=== PATIENT | female | born 1970 | race Caucasian/White ===

== ENCOUNTER 2024-01-01 08:39 | Emergency (ER) | payer MEDICARE ==
[2024-01-01 09:24] LABS: BASOPHILS % (AUTO) 0.3 %; EOSINOPHILS # (AUTO) 0.1 10^3/uL (0.0-0.7); HCT - HEMATOCRIT 40.5 % (37.0-47.0); HGB - HEMOGLOBIN 12.7 g/dL (12.0-16.0); LYMPHOCYTES # (AUTO) 1.3 10^3/uL (1.5-3.5); LYMPHOCYTES % (AUTO) 9.6 %; MEAN CORPUSCULAR HGB CONC 31.4 g/dL (32.0-36.0); MEAN CORPUSCULAR VOLUME 95.7 fL (81.0-99.0); MEAN PLATELET VOLUME 10.1 fL (7.9-10.8); MONOCYTES % (AUTO) 7.2 %; NEUTROPHILS # (AUTO) 11.1 10^3/uL (1.5-6.6); NEUTROPHILS % (AUTO) 81.6 %; PLT - PLATELET COUNT 243 10^3/uL (130-450); RED BLOOD COUNT 4.23 10^6/uL (4.20-5.40); WHITE BLOOD COUNT 13.6 x10^3/uL (4.8-10.8)
[2024-01-01 09:37] LABS: ALBUMIN/GLOBULIN RATIO 1.7 (1.0-2.2); BILIRUBIN,TOTAL 1.1 mg/dL (0.2-1.0); CALCIUM 9.3 mg/dL (8.5-10.3); CREATININE 1.1 mg/dL (0.6-1.3); TOTAL PROTEIN 6.4 g/dL (6.4-8.9)
[2024-01-01 10:58] VITALS: O2SAT 98
--- NOTE | 2024-01-01 11:40 | ED Physician Documentation ---
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 She has a history of hemorrhoids and rectal fissure. She presents with 2 days of left-sided rectal pain associated with a low-grade fever. There is no bleeding. 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 - Present Medications Home Medications: Ambulatory Orders Medication Instructions Recorded Confirmed Amox/Clav 875/125 [Augmentin] 1 each PO Q12H #20 tablet 01/01/24 Atorvastatin [Lipitor] 20 mg PO QPM 01/01/24 01/01/24 Buspirone HCl 15 mg PO TID PRN 01/01/24 01/01/24 DULoxetine [Cymbalta] 60 mg PO DAILY 01/01/24 01/01/24 EPINEPHrine [Epinephrine] 0.3 mg IM ONCE PRN 01/01/24 01/01/24 Famotidine 40 mg PO HS 01/01/24 01/01/24 Gabapentin [Neurontin] 300 mg PO DAILY 01/01/24 01/01/24 Hydrocodone/Acetaminophen 2 each PO BID PRN 01/01/24 01/01/24 [Hydrocodone-Acetamin 10-325 mg] Hydroxychloroquine [Plaquenil] 200 mg PO BID 01/01/24 01/01/24 Levothyroxine Sodium 50 mcg PO DAILY 01/01/24 01/01/24 Midodrine [ProAmantine] 10 mg PO TIDWM PRN 01/01/24 01/01/24 Pramoxine HCl [Proctofoam] 1 appful OR QID PRN #30 gm 01/01/24 Rimegepant Sulfate [Nurtec Odt] 1 tab PO DAILY PRN 01/01/24 01/01/24 Rivaroxaban [Xarelto] 20 mg PO DAILY 01/01/24 01/01/24 Semaglutide [Ozempic] 1 mg SQ .WEEKLY 01/01/24 01/01/24 Thyroid [[place] Thyroid] 60 mg PO DAILY 01/01/24 01/01/24 dexAMETHasone [Decadron] 4 mg PO DAILY PRN 01/01/24 01/01/24 tiZANidine [Zanaflex] 8 mg PO BID PRN 01/01/24 01/01/24 - Allergies Allergies/Adverse Reactions: Allergies Allergy/AdvReac Type Severity Reaction Status Date / Time celecoxib [From Celebrex] Allergy Rash Verified 01/01/24 08:58 heparin Allergy Rash Verified 01/01/24 10:00 Sulfa (Sulfonamide Allergy Rash Verified 01/01/24 08:58 Antibiotics) - Social History Does the pt smoke?: No Smoking Status: Never smoker Does the pt drink ETOH?: No Does the pt have substance abuse?: No PD ED PE NORMAL - Vitals Vital signs reviewed: Yes - General General: Alert and oriented X 3, No acute distress - Abdomen Abdomen: Non tender - Rectal Rectal: Other (Exam done with IU to RN present and chaperoning. There is a small area of fullness to the left of the rectum consistent with a small perianal abscess.) Results - Vitals Vitals: Vital Signs - 24 hr 01/01/24 01/01/24 08:49 10:56 Temperature 36.8 C Heart Rate 93 83 Respiratory 15 14 Rate Blood Pressure 90/58 L 102/72 O2 Saturation 96 98 Oxygen O2 Source Room air - Labs Labs: Laboratory Tests 01/01/24 01/01/24 09:19 09:19 WBC 13.6 H RBC 4.23 Hgb 12.7 Hct 40.5 MCV 95.7 MCH 30.0 MCHC 31.4 L RDW 13.0 Plt Count 243 MPV 10.1 Neut # (Auto) 11.1 H Lymph # (Auto) 1.3 L [place] # (Auto) 1.0 Eos # (Auto) 0.1 Baso # (Auto) 0.0 Absolute Nucleated RBC 0.00 Nucleated RBC % 0.0 Sodium 137 Potassium 4.0 Chloride 103 Carbon Dioxide 29 Anion Gap 5.0 L BUN 12 Creatinine 1.1 Estimated GFR (MDRD) 52 L Glucose 93 Calcium 9.3 Total Bilirubin 1.1 H AST 9 L ALT 8 L Alkaline Phosphatase 50 Total Protein 6.4 Albumin 4.0 Globulin 2.4 Albumin/Globulin Ratio 1.7 Lipase 14 PD Medical Decision Making - ED course ED course: 53-year-old woman with a small perianal abscess. I do not think it size is currently amenable to drainage but discussed with her that if she were to progress or fail to improve on antibiotics she may need needle aspiration or drainage. Departure - Departure Disposition: 01 Home, Self Care Clinical Impression: Perirectal abscess Condition: Good Record reviewed to determine appropriate education?: Yes Instructions: ED Criselda Anal Abscess Abx Only Prescriptions: Amox/Clav 875/125 [Augmentin] 1 each PO Q12H #20 tablet Pramoxine HCl [Proctofoam] 1 appful OR QID PRN #30 gm PRN Reason: Rectal Pain Comments: I sent prescription Electronically to the [facility] in [place]. As discussed, at this point it seems like you have a very small perianal/perirectal abscess. At this point it does not seem to be at the point where it would be amenable to a drainage procedure, but if it were to progress or fail to improve that may be necessary at some point. Return here if you worsen before you go back to [place], and in a few days if not improved after return to [place], seek out medical care. Forms: PCP List
[2024-01-01 11:58] VITALS: BP 108/65
== END 2024-01-01 11:51 | disposition home or self-care (01) ==
LOC: ED 08:39
DX: K61.1 Rectal abscess (principal); Z79.899 Other long term (current) drug therapy; Z79.01 Long term (current) use of anticoagulants
CPT/HCPCS: 36415; 80053; 83690; 85025; 99283